=== PATIENT | male | born 1990 | race Caucasian/White ===

== ENCOUNTER 2017-06-24 01:58 | Emergency (ER) | payer SELFPAY ==
[2017-06-24] MEDS ORDERED: IBUPROFEN 600 MG TABLET ONE (02:25)
[2017-06-24] MEDS ORDERED: OSELTAMIVIR PHOSPHATE 75 MG CAP ONE (02:26)
== END 2017-06-24 03:00 | disposition home or self-care (01) ==
LOC: EDH 01:58
DX: J11.1 Influenza due to unidentified influenza virus with other respiratory manifestations (principal)